=== PATIENT | male | born 1940 | race Caucasian/White ===

== ENCOUNTER 2020-07-29 11:34 | Inpatient (IN) | payer BC, MEDICARE ==
[~2020-07-29] VITALS: Ht 172.7 cm; Wt 63.0 kg
[~2020-07-29 11:34] MED LIST: ASPI-1265 PO; ATEN-169 PO; ENAL20TA75 PO; HCTZ25T PO; LEVA15HF4 IH; LEVO500T2 PO; LOSA100T13 PO; PRED20TA PO; SIMV10TA2 PO
[2020-07-29 13:19] LABS: BASOPHILS % (AUTO) 0.2 % (0-1); EOSINOPHILS % (AUTO) 0 % (0-6); HEMATOCRIT 42.1 % (42.0-52.0); HEMOGLOBIN 14.3 g/dl (14.0-17.9); LYMPHOCYTES # (AUTO) 0.2 X10'3 (1.1-4.8); LYMPHOCYTES % (AUTO) 1.1 % (21-51); MEAN CORPUSCULAR HEMOGLOBIN 30.8 PG (27.0-31.0); MEAN CORPUSCULAR HGB CONC 33.9 g/dL (33.0-36.5); MEAN CORPUSCULAR VOLUME 90.7 FL (78-98); MEAN PLATELET VOLUME 8.4 FL (7.4-10.4); MONOCYTES # (AUTO) 1.1 X10'3 (0-0.9); MONOCYTES % (AUTO) 6.2 % (2-12); NEUTROPHILS # (AUTO) 16.1 X10'3 (1.8-7.7); NEUTROPHILS % (AUTO) 92.5 % (42-75); PLATELET COUNT 196 X10'3 (140-440); RED BLOOD COUNT 4.64 X10'6 (4.70-6.10); RED CELL DISTRIBUTION WIDTH 13.2 % (11.5-14.5); WHITE BLOOD COUNT 17.4 X10'3 (4.5-11.0)
[2020-07-29 13:35] LABS: ALANINE AMINOTRANSFERASE 21 U/L (12-78); ALBUMIN 3.7 G/DL (3.4-5.0); ALBUMIN/GLOBULIN RATIO 1.1 (1.1-1.5); ALKALINE PHOSPHATASE 69 IU/L (46-116); ANION GAP 10 (8-16); ASPARTATE AMINO TRANSFERASE 18 U/L (10-37); BILIRUBIN,TOTAL 1.1 MG/DL (0.1-1.0); BLOOD UREA NITROGEN 31 MG/DL (7-18); BUN/CREATININE RATIO 21.8 (5.4-32.0); CALCIUM 8.8 MG/DL (8.5-10.1); CHLORIDE 101 MMOL/L (99-107); CREATININE 1.42 MG/DL (0.60-1.10); GLUCOSE 117 MG/DL (70-104); SODIUM 135 MMOL/L (135-145); TOTAL CARBON DIOXIDE 24.2 MMOL/L (24-32); eGFR 48 ML/MIN
[2020-07-29 13:39] LABS: ETHANOL < 0.010 GM/DL (0.0-0.010)
[2020-07-29 14:01] LABS: TOTAL CELLS COUNTED 100
[2020-07-29 14:02] LABS: PLATELET ESTIMATE NORMAL
[2020-07-29 14:59] LABS: CLARITY,URINE CLOUDY (Clear); COLOR,URINE YELLOW (Yellow); GLUCOSE, URINE NEGATIVE (Neg); KETONES,URINE NEGATIVE (Neg); LEUKOCYTE ESTERASE ,URINE LARGE (Neg); NITRITES, URINE NEGATIVE (Neg); OCCULT BLOOD,URINE LARGE (Neg); PROTEIN,URINE 30 mg/dl (Neg); UA COLLECTION TYPE CLN CATCH MIDSTREAM; UROBILINOGEN,URINE 0.2 E.U/dL (0.2-1.0)
[2020-07-29 15:05] LABS: BACTERIA,URINE 4+ /HPF (Neg); SQUAMOUS EPITHELIAL CELL,UR FEW /LPF (FEW)
[2020-07-29 15:06] LABS: WBC,URINE 50-100 /HPF (0-4)
[2020-07-29 15:08] LABS: WBC CLUMPS,URINE FEW /HPF (NEGATIVE)
--- NOTE | 2020-07-29 15:26 | NUR ---
Pt's Spouse Ida phoned and left her phone number so she can be reached [phone].
--- NOTE | 2020-07-29 15:43 | NUR ---
Pt continues to be confused, Alert to baseline, knows his name and date of but requires frequent reorientation for current situation, time, place.
[2020-07-29] MEDS ORDERED: normal saline 1000ML IV soln IVB ONE ×2 (15:45→17:15)
[2020-07-29] MEDS ORDERED: CefTRIAXone/D5W-Rocephin 1gm 50 ML IV ONE (15:45)
[2020-07-29 16:35] LABS: BASOPHILS % (AUTO) 0.1 % (0-1); EOSINOPHILS % (AUTO) 0 % (0-6); HEMATOCRIT 43.2 % (42.0-52.0); HEMOGLOBIN 14.6 g/dl (14.0-17.9); LYMPHOCYTES # (AUTO) 0.3 X10'3 (1.1-4.8); LYMPHOCYTES % (AUTO) 1.7 % (21-51); MEAN CORPUSCULAR HEMOGLOBIN 30.7 PG (27.0-31.0); MEAN CORPUSCULAR HGB CONC 33.8 g/dL (33.0-36.5); MEAN PLATELET VOLUME 8.7 FL (7.4-10.4); MONOCYTES # (AUTO) 0.7 X10'3 (0-0.9); MONOCYTES % (AUTO) 3.5 % (2-12); NEUTROPHILS # (AUTO) 17.6 X10'3 (1.8-7.7); NEUTROPHILS % (AUTO) 94.7 % (42-75); PLATELET COUNT 202 X10'3 (140-440); RED BLOOD COUNT 4.74 X10'6 (4.70-6.10); WHITE BLOOD COUNT 18.6 X10'3 (4.5-11.0)
[2020-07-29 16:46] LABS: MAGNESIUM 1.8 MG/DL (1.5-2.4)
[2020-07-29] MEDS ORDERED: ondansetron/PF 4mg/2ml inj IV PRN (17:15)
[2020-07-29] MEDS ORDERED: morphine 2 MG/ML inj. syringe IV PRN ×2 (17:15)
[2020-07-29] MEDS ORDERED: mag hydrox/Alum hydrox/simeth 30ml oral suspension PO PRN (17:15)
[2020-07-29] MEDS ORDERED: magnesium hydroxide 30ml (MOM) UD suspension PO PRN (17:15)
[2020-07-29] MEDS ORDERED: HYDROcodone/acetaminophen 5mg/325mg tablet PO PRN (17:15)
[2020-07-29] MEDS ORDERED: acetaminophen 325mg tablet PO PRN ×2 (17:15)
[2020-07-29] MEDS ORDERED: LISI-600 PO (17:50)
[2020-07-29] MEDS ORDERED: AMLO5TAB16 PO (17:50)
--- NOTE | 2020-07-29 18:15 | NUR ---
Pt was confused, discontinued IV and was found wandering in the parking lot. Pt reoriented, brought back to the room and New IV access started. Sitter with the patient.
[2020-07-29] MEDS: normal saline 1000ml 1,000 ML IV SCH (19:06)
--- NOTE | 2020-07-29 19:30 | NUR ---
PT RIPPED OUT Y PORT TO IV. NEW Y PORT REESTABLISHED AND IV PATENT. REWRAPPED WITH COBAN AND PT PLEASANT AND COOPERATIVE AT THIS TIME. SITTER AT BEDSIDE
--- NOTE | 2020-07-29 21:03 | NUR ---
received report from ER nurse Tito Rn will assume care.
[2020-07-29 21:51] VITALS: BP_SYST 133; BP_SYST 159; BP_SYST 167; BP_DIAS 70; BP_DIAS 75; BP_DIAS 78
[2020-07-29 22:00] VITALS: BP 159/78
[2020-07-30 02:00] VITALS: BP 102/58
[2020-07-30] MEDS: normal saline 1000ml 1,000 ML IV SCH ×3 (03:15→23:35)
[2020-07-30 06:00] VITALS: BP_SYST 117; BP_SYST 125; BP_SYST 131; BP_DIAS 62; BP_DIAS 66; BP_DIAS 71
--- NOTE | 2020-07-30 06:31 | NUR ---
Problems reprioritized. Patient report given, questions answered & plan of care reviewed with Rachel MALDONADO.
--- NOTE | 2020-07-30 06:40 | NUR ---
Patient in room U 3023. I have received report from CLARICE MALDONADO and had the opportunity to ask questions and assume patient care. Addendum: 07/30/20 at 0652 by Belén Reed RN Amended: Links added.
[2020-07-30 08:00] VITALS: BP_SYST 117; BP_SYST 125; BP_SYST 131; BP_DIAS 62; BP_DIAS 66; BP_DIAS 71
[2020-07-30 08:42] LABS: BASOPHILS % (AUTO) 0.3 % (0-1); EOSINOPHILS % (AUTO) 0.1 % (0-6); HEMATOCRIT 40.2 % (42.0-52.0); HEMOGLOBIN 13.7 g/dl (14.0-17.9); LYMPHOCYTES % (AUTO) 7.1 % (21-51); MEAN CORPUSCULAR HEMOGLOBIN 31.2 PG (27.0-31.0); MEAN CORPUSCULAR VOLUME 91.6 FL (78-98); MEAN PLATELET VOLUME 8.4 FL (7.4-10.4); MONOCYTES # (AUTO) 0.7 X10'3 (0-0.9); MONOCYTES % (AUTO) 5.2 % (2-12); NEUTROPHILS # (AUTO) 12.5 X10'3 (1.8-7.7); NEUTROPHILS % (AUTO) 87.3 % (42-75); PLATELET COUNT 166 X10'3 (140-440); RED BLOOD COUNT 4.38 X10'6 (4.70-6.10); RED CELL DISTRIBUTION WIDTH 13.2 % (11.5-14.5); WHITE BLOOD COUNT 14.3 X10'3 (4.5-11.0)
[2020-07-30 08:51] LABS: ALBUMIN 3.2 G/DL (3.4-5.0); ANION GAP 7 (8-16); BLOOD UREA NITROGEN 26 MG/DL (7-18); CALCIUM 8.7 MG/DL (8.5-10.1); CHLORIDE 105 MMOL/L (99-107); CREATININE 1.24 MG/DL (0.60-1.10); GLUCOSE 112 MG/DL (70-104); POTASSIUM 4.1 MMOL/L (3.5-5.1); SODIUM 139 MMOL/L (135-145); TOTAL CARBON DIOXIDE 27.2 MMOL/L (24-32); eGFR 56 ML/MIN
[2020-07-30] MEDS: CefTRIAXone/D5W-Rocephin 1gm 50 ML IV SCH (08:53)
[2020-07-30] MEDS: enoxaparin 40mg/0.4ml syringe SUBCUT SCH (08:53)
--- NOTE | 2020-07-30 09:48 | NUR ---
PAGER ID: [phone] MESSAGE: [id number] MANA HAS POSITIVE BLOOD CULTURES. MERON ROSS
[2020-07-30 11:00] VITALS: BP 150/83
--- NOTE | 2020-07-30 11:00 | NUR ---
Problems reprioritized. Patient report given, questions answered & plan of care reviewed with SUSIE MALDONADO. Addendum: 07/30/20 at 1127 by Belén Reed RN Amended: Links added.
--- NOTE | 2020-07-30 14:49 | NUR ---
Malnutrition consult. Pt admitted with reports weight loss, per physical assessment pt documented with confusion, pulling lines, has sitter at bedside and receiving caution tray. Ate about 50% of two meals. No reliable past weight history. No edema. Pt well appearing per ED note. Does not have more than two criteria for malnutrition at this time. Will follow. Addendum: 07/30/20 at [address] Amended: Links added.
[2020-07-30 15:00] VITALS: BP 148/86
--- NOTE | 2020-07-30 18:00 | NUR ---
Patient in room PCU 3023. I have received report from Yesika MALDONADO and had the opportunity to ask questions and assume patient care.
[2020-07-30 20:00] VITALS: BP 125/49
[2020-07-30] MEDS: lactobacillus rhamnosus 10,000 MMU CELLS/CAPSULE PO SCH (20:49)
--- NOTE | 2020-07-30 22:14 | NUR ---
Patient is agitated, continues to pull his IV, pees on the floor, fights with the sitter, and refuses to sit down. Dr. Hollis notified and order for Geodon and restraint in place.
[2020-07-30] MEDS ORDERED: ziprasidone IM 20mg inj **IM only IM PRN (22:15)
--- NOTE | 2020-07-30 23:17 | NUR ---
Pt. continues to be resistive to care. Geodon given as per MD's order, ineffective. New order for Ativan 1mg x 1 only.
[2020-07-30] MEDS ORDERED: LORazepam 2 mg/ml vial IV ONE (23:20)
[2020-07-31] MEDS ORDERED: ziprasidone IM 20mg inj **IM only IM ONE (01:40)
[2020-07-31 02:00] VITALS: BP 166/96
[2020-07-31 06:00] VITALS: BP 176/128
[2020-07-31 06:01] LABS: BASOPHILS % (AUTO) 0.1 % (0-1); EOSINOPHILS % (AUTO) 0 % (0-6); HEMATOCRIT 42.4 % (42.0-52.0); HEMOGLOBIN 14.6 g/dl (14.0-17.9); LYMPHOCYTES # (AUTO) 0.3 X10'3 (1.1-4.8); LYMPHOCYTES % (AUTO) 2.4 % (21-51); MEAN CORPUSCULAR HEMOGLOBIN 31.4 PG (27.0-31.0); MEAN CORPUSCULAR HGB CONC 34.4 g/dL (33.0-36.5); MEAN CORPUSCULAR VOLUME 91.4 FL (78-98); MEAN PLATELET VOLUME 8.9 FL (7.4-10.4); MONOCYTES # (AUTO) 0.4 X10'3 (0-0.9); MONOCYTES % (AUTO) 3.3 % (2-12); NEUTROPHILS # (AUTO) 11.9 X10'3 (1.8-7.7); NEUTROPHILS % (AUTO) 94.2 % (42-75); PLATELET COUNT 184 X10'3 (140-440); RED BLOOD COUNT 4.64 X10'6 (4.70-6.10); RED CELL DISTRIBUTION WIDTH 13.2 % (11.5-14.5); WHITE BLOOD COUNT 12.6 X10'3 (4.5-11.0)
[2020-07-31 06:14] LABS: ALBUMIN 3.2 G/DL (3.4-5.0); ANION GAP 10 (8-16); BLOOD UREA NITROGEN 34 MG/DL (7-18); BUN/CREATININE RATIO 18.5 (5.4-32.0); CALCIUM 8.8 MG/DL (8.5-10.1); CHLORIDE 102 MMOL/L (99-107); CREATININE 1.84 MG/DL (0.60-1.10); GLUCOSE 155 MG/DL (70-104); POTASSIUM 3.5 MMOL/L (3.5-5.1); SODIUM 137 MMOL/L (135-145); TOTAL CARBON DIOXIDE 24.8 MMOL/L (24-32); eGFR 35 ML/MIN
--- NOTE | 2020-07-31 06:31 | NUR ---
Problems reprioritized. Patient report given, questions answered & plan of care reviewed with Sulema MALDONADO.
--- NOTE | 2020-07-31 06:39 | NUR ---
Patient in room PCU 3023. I have received report from ERICA Lay and had the opportunity to ask questions and assume patient care.
[2020-07-31] MEDS: CefTRIAXone/D5W-Rocephin 1gm 50 ML IV SCH (07:58)
[2020-07-31] MEDS: enoxaparin 40mg/0.4ml syringe SUBCUT SCH (07:58)
[2020-07-31] MEDS: lactobacillus rhamnosus 10,000 MMU CELLS/CAPSULE PO SCH ×2 (08:00→19:45)
[2020-07-31] MEDS: normal saline 1000ml 1,000 ML IV SCH ×2 (10:32→19:48)
--- NOTE | 2020-07-31 11:27 | NUR ---
pT WITH BILE EMESIS FOUND UNDER DRAW SHEET AND PT ACTIVELY VOMITING SMALL AMOUNTS OF SAME. pT INC OF URINE, PT BATHED, PROVIDED ORAL CARE AND APPLIED A CONDOM CATH. Addendum: 07/31/20 at 1128 by Sulema Cyr RN Amended: Links added.
--- NOTE | 2020-07-31 11:38 | NUR ---
Unable to do orthostatic due to acute confusion and restraints Addendum: 07/31/20 at 1144 by Sulema Cyr RN Amended: Links added.
[2020-07-31] MEDS ORDERED: ondansetron 4mg rapidly disintigrating tab PO PRN (15:25)
[2020-07-31 18:00] VITALS: BP 176/98
--- NOTE | 2020-07-31 18:34 | NUR ---
Problems reprioritized. Patient report given, questions answered & plan of care reviewed with Ayesha Contreras RN.
[2020-07-31 20:00] VITALS: BP_SYST 108; BP_SYST 200; BP_SYST 230; BP_DIAS 105; BP_DIAS 121; BP_DIAS 74
[2020-07-31 22:00] VITALS: BP 200/105
[2020-07-31] MEDS: hyDRALAzine 10mg tablet PO PRN ×2 (22:21→22:26)
--- NOTE | 2020-07-31 22:23 | NUR ---
Called MD, as patient had increase BP. New order for hydralazine Q 6 hours, PRN
[2020-08-01] VITALS: BP 179/88
[2020-08-01 02:04] VITALS: BP 166/112
[2020-08-01] MEDS: normal saline 1000ml 1,000 ML IV SCH (05:32)
--- NOTE | 2020-08-01 06:19 | NUR ---
Patient in room PCU 3023. I have received report from ERICA Hodge and had the opportunity to ask questions and assume patient care.
--- NOTE | 2020-08-01 06:23 | NUR ---
Problems reprioritized. Patient report given, questions answered & plan of care reviewed with ERICA Montalvo.
[2020-08-01 06:32] LABS: ANION GAP 11 (8-16); BASOPHILS % (AUTO) 0.1 % (0-1); BLOOD UREA NITROGEN 38 MG/DL (7-18); BUN/CREATININE RATIO 22.8 (5.4-32.0); CALCIUM 8.4 MG/DL (8.5-10.1); CHLORIDE 104 MMOL/L (99-107); CREATININE 1.67 MG/DL (0.60-1.10); EOSINOPHILS % (AUTO) 0.1 % (0-6); GLUCOSE 121 MG/DL (70-104); HEMATOCRIT 41.7 % (42.0-52.0); HEMOGLOBIN 14.5 g/dl (14.0-17.9); LYMPHOCYTES # (AUTO) 0.6 X10'3 (1.1-4.8); MEAN CORPUSCULAR HEMOGLOBIN 31.6 PG (27.0-31.0); MEAN CORPUSCULAR HGB CONC 34.8 g/dL (33.0-36.5); MEAN CORPUSCULAR VOLUME 90.8 FL (78-98); MEAN PLATELET VOLUME 9.1 FL (7.4-10.4); MONOCYTES # (AUTO) 0.8 X10'3 (0-0.9); MONOCYTES % (AUTO) 7.3 % (2-12); NEUTROPHILS # (AUTO) 9.7 X10'3 (1.8-7.7); NEUTROPHILS % (AUTO) 87.5 % (42-75); PLATELET COUNT 188 X10'3 (140-440); POTASSIUM 3.5 MMOL/L (3.5-5.1); RED BLOOD COUNT 4.59 X10'6 (4.70-6.10); RED CELL DISTRIBUTION WIDTH 13.1 % (11.5-14.5); SODIUM 138 MMOL/L (135-145); TOTAL CARBON DIOXIDE 22.7 MMOL/L (24-32); WHITE BLOOD COUNT 11.1 X10'3 (4.5-11.0); eGFR 40 ML/MIN
[2020-08-01 06:35] VITALS: BP 157/87
[2020-08-01] MEDS: lactobacillus rhamnosus 10,000 MMU CELLS/CAPSULE PO SCH (07:13)
[2020-08-01] MEDS: CefTRIAXone/D5W-Rocephin 1gm 50 ML IV SCH (07:15)
[2020-08-01] MEDS: enoxaparin 40mg/0.4ml syringe SUBCUT SCH (07:15)
[2020-08-01 08:00] VITALS: BP_SYST 124; BP_SYST 133; BP_SYST 136; BP_DIAS 67; BP_DIAS 68; BP_DIAS 72
[2020-08-01 11:00] VITALS: BP 144/93
--- NOTE | 2020-08-01 12:00 | NUR ---
Student documentation: I have reviewed and agree with all interventions, assessments performed and documented by Jesi, Student nurse.
[2020-08-01] MEDS ORDERED: LEVO500T89 PO (12:34)
--- NOTE | 2020-08-01 15:00 | NUR ---
Patient stable for discharge per md orders. IV discontinued with cannula intact. Discharge instructions and strict return precautions gone over in detail with patient's significant other, Ida. Patient prescriptions sent to [facility] in [employer] on [address]. patient wheeled to parking lot in front of hospital accompanied by RN. Armbands cut at time of discharge. Patient's was awaiting in private vehicle; vehicle seen leaving premise.
== END 2020-08-01 15:00 | disposition home health service (06) | DRG 871 ==
LOC: ER 11:34 → ED HOLD 17:14 → PCU 3S 21:15
PROVIDERS: ADMIT Internal Medicine; ATTEND Family Medicine
DX: A41.51 Sepsis due to Escherichia coli [E. coli] (principal); G92 Toxic encephalopathy; N39.0 Urinary tract infection, site not specified; N17.9 Acute kidney failure, unspecified; F03.90 Unspecified dementia, unspecified severity, without behavioral disturbance, psychotic disturbance, mood disturbance, and anxiety; E78.5 Hyperlipidemia, unspecified; E78.00 Pure hypercholesterolemia, unspecified; Z87.891 Personal history of nicotine dependence; J45.909 Unspecified asthma, uncomplicated; I10 Essential (primary) hypertension
CPT/HCPCS: 36415; 71045; 80048; 80053; 80320; 81001; 83605; 83735; 83880; 84145; 84443; 85007; 85025; 87040; 87077; 87081; 87088; 87186; 93005; 97116; 97161; 97530; 97535; 99285; G0378; J0696; J1650; J2060; J2270; J3486; J7030

== ENCOUNTER 2020-08-02 06:26 | Emergency (ER) | payer MEDICARE ==
[~2020-08-02] VITALS: Ht 172.7 cm; Wt 65.0 kg
[~2020-08-02 06:26] MED LIST changes: +AMLO5TAB16 PO; +LEVO500T89 PO; +LISI-600 PO
--- NOTE | 2020-08-02 07:48 | NUR ---
TC TO TO INFORM OF PATIENT DISCHARGE STATUS. IS CONCERNED THAT NOTHING NEW WAS DETECTED ON EXAMINATION, BASED ON PATIENT RESTLESSNESS ALL NIGHT AND PAIN. INFORMED THAT PATIENT SHOULD CONTINUE MEDS PRESCRIBED AND WILL BE COMING TO [facility] PATIENT.
[2020-08-02 09:10] VITALS: BP 187/104
== END 2020-08-02 09:29 | disposition home or self-care (01) ==
LOC: ER 06:26
DX: M25.551 Pain in right hip (principal); N39.0 Urinary tract infection, site not specified; F03.90 Unspecified dementia, unspecified severity, without behavioral disturbance, psychotic disturbance, mood disturbance, and anxiety; E78.00 Pure hypercholesterolemia, unspecified; I10 Essential (primary) hypertension; J45.909 Unspecified asthma, uncomplicated; Z85.9 Personal history of malignant neoplasm, unspecified; Z88.1 Allergy status to other antibiotic agents; Z88.8 Allergy status to other drugs, medicaments and biological substances
CPT/HCPCS: 72170; 99284

== ENCOUNTER 2020-08-08 07:36 | Inpatient (IN) | payer MEDICARE ==
[~2020-08-08] VITALS: Ht 188 cm; Wt 62.0 kg
[~2020-08-08 07:36] MED LIST changes: -ASPI-1265 PO; -ATEN-169 PO; -ENAL20TA75 PO; -HCTZ25T PO; -LEVA15HF4 IH; -LEVO500T2 PO; -LOSA100T13 PO; -PRED20TA PO; -SIMV10TA2 PO
[2020-08-08] MEDS ORDERED: TRANEXAMIC ACID 1 GM IN NACL,ISO-OS 100 ML IV ONE (08:55)
--- NOTE | 2020-08-08 09:05 | NUR ---
CALLED IN FOR CONDITION REPORT. INFORMED THAT WORK-UP IS STILL IN PROGRESS. SHE WILL CALL BACK IN 2 HOURS FOR ADDITIONAL INFORMATION.
[2020-08-08 09:08] LABS: CLARITY,URINE CLEAR (Clear); COLOR,URINE YELLOW (Yellow); GLUCOSE, URINE NEGATIVE (Neg); KETONES,URINE NEGATIVE (Neg); LEUKOCYTE ESTERASE ,URINE NEGATIVE (Neg); NITRITES, URINE NEGATIVE (Neg); OCCULT BLOOD,URINE TRACE-INTACT (Neg); PROTEIN,URINE NEGATIVE (Neg); UROBILINOGEN,URINE 0.2 E.U/dL (0.2-1.0)
--- NOTE | 2020-08-08 09:13 | NUR ---
dr zepeda informed bladder scan post void is over 960 ml, vo for queen cath
[2020-08-08] MEDS ORDERED: LIDOcaine 2% 10ml TOPICAL JELLY (Urojet) TP ONE (09:15)
[2020-08-08 09:16] LABS: UA COLLECTION TYPE CLN CATCH MIDSTREAM
[2020-08-08 09:17] LABS: SQUAMOUS EPITHELIAL CELL,UR FEW /LPF (FEW)
[2020-08-08 09:18] LABS: BACTERIA,URINE FEW /HPF (Neg); TRANSITIONAL EPI CELLS,URINE FEW /HPF
[2020-08-08 09:19] LABS: MUCUS STRANDS FEW /LPF (Neg)
[2020-08-08] MEDS ORDERED: magnesium citrate 296ml oral solution PO ONE (10:00)
[2020-08-08 10:02] LABS: BASOPHILS % (AUTO) 0.6 % (0-1); EOSINOPHILS # (AUTO) 0.1 X10'3 (0-0.9); EOSINOPHILS % (AUTO) 0.9 % (0-6); HEMATOCRIT 36.5 % (42.0-52.0); HEMOGLOBIN 12.7 g/dl (14.0-17.9); LYMPHOCYTES # (AUTO) 0.8 X10'3 (1.1-4.8); LYMPHOCYTES % (AUTO) 12.1 % (21-51); MEAN CORPUSCULAR HEMOGLOBIN 31.2 PG (27.0-31.0); MEAN CORPUSCULAR HGB CONC 34.9 g/dL (33.0-36.5); MEAN CORPUSCULAR VOLUME 89.6 FL (78-98); MONOCYTES # (AUTO) 0.5 X10'3 (0-0.9); MONOCYTES % (AUTO) 8.1 % (2-12); NEUTROPHILS # (AUTO) 5.1 X10'3 (1.8-7.7); NEUTROPHILS % (AUTO) 78.3 % (42-75); PLATELET COUNT 253 X10'3 (140-440); RED BLOOD COUNT 4.07 X10'6 (4.70-6.10); RED CELL DISTRIBUTION WIDTH 13.4 % (11.5-14.5); WHITE BLOOD COUNT 6.6 X10'3 (4.5-11.0)
[2020-08-08 10:20] LABS: ALANINE AMINOTRANSFERASE 41 U/L (12-78); ALBUMIN/GLOBULIN RATIO 0.8 (1.1-1.5); ALKALINE PHOSPHATASE 76 IU/L (46-116); ANION GAP 14 (8-16); ASPARTATE AMINO TRANSFERASE 32 U/L (10-37); BILIRUBIN,TOTAL 0.7 MG/DL (0.1-1.0); BLOOD UREA NITROGEN 45 MG/DL (7-18); BUN/CREATININE RATIO 14.9 (5.4-32.0); CALCIUM 8.7 MG/DL (8.5-10.1); CHLORIDE 102 MMOL/L (99-107); CREATININE 3.03 MG/DL (0.60-1.10); GLUCOSE 96 MG/DL (70-104); POTASSIUM 3.8 MMOL/L (3.5-5.1); SODIUM 138 MMOL/L (135-145); TOTAL CARBON DIOXIDE 22.5 MMOL/L (24-32); TOTAL PROTEIN 6.6 G/DL (6.4-8.2); eGFR 20 ML/MIN
--- NOTE | 2020-08-08 11:09 | NUR ---
SPOKE WITH JASON [phone]
--- NOTE | 2020-08-08 11:24 | NUR ---
SPOKE TO AGAIN
[2020-08-08] MEDS ORDERED: normal saline 1000ml 1,000 ML IV SCH (11:25)
[2020-08-08] MEDS ORDERED: ondansetron/PF 4mg/2ml inj IV PRN (11:25)
[2020-08-08] MEDS ORDERED: magnesium 4gm in 100ml NS 100 ML IV PRN (11:25)
[2020-08-08] MEDS ORDERED: magnesium Cl slow-release 64mg tablet PO PRN (11:25)
[2020-08-08] MEDS ORDERED: potassium CL 10mEq/100ml bag 100 ML IV PRN ×2 (11:25)
[2020-08-08] MEDS ORDERED: magnesium 2GM in 50ml NS 50 ML IV PRN (11:25)
[2020-08-08] MEDS ORDERED: acetaminophen 325mg tablet PO PRN (11:25)
[2020-08-08] MEDS ORDERED: potassium Cl 20 mEq SR tablet PO PRN ×2 (11:25)
[2020-08-08] MEDS ORDERED: FLO0.4C PO (11:34)
[2020-08-08] MEDS ORDERED: LEVO500T89 PO (11:34)
[2020-08-08] MEDS ORDERED: QUET25TA34 PO (11:34)
--- NOTE | 2020-08-08 11:50 | NUR ---
CALLED IN FOR CONDITION REPORT AND WAS INFORMED THAT PATIENT WILL PROBABLY BE ADMITTED INPATIENT.
--- NOTE | 2020-08-08 12:24 | NUR ---
Patient in room ED 15. I have received report from Hannah and had the opportunity to ask questions and assume patient care.
--- NOTE | 2020-08-08 12:27 | NUR ---
PHONE REPORT TO CARLOS MALDONADO IN ORTHO PATIENT TO GO TO ROOM 4010B ON MONITOR WITH RN
--- NOTE | 2020-08-08 12:37 | NUR ---
CARLOS ARWARE THAT SUGAR AND SODA ENEMA NOT GIVEN, ONLY MINERAL OIL ENEMA
--- NOTE | 2020-08-08 12:42 | NUR ---
spoke to , questions answered in simple terms. provided room # and update
--- NOTE | 2020-08-08 13:23 | NUR ---
Pt arrived on the floor, skin check, tucked in
[2020-08-08 13:46] VITALS: BP 185/89
[2020-08-08 17:00] VITALS: BP 183/95
--- NOTE | 2020-08-08 17:10 | NUR ---
PAGER ID: [phone] MESSAGE: Araceli bryson on neuro, Mr. Worley in 2318B has BP of 183/95, please advise
[2020-08-08] MEDS ORDERED: amLODIPine 5mg tablet PO ONE ×2 (17:15→19:00)
--- NOTE | 2020-08-08 18:22 | NUR ---
Problems reprioritized. Patient report given, questions answered & plan of care reviewed with Lazara.
--- NOTE | 2020-08-08 18:30 | NUR ---
Patient in room ORTHO 4010. I have received report from Araceli MALDONADO and had the opportunity to ask questions and assume patient care. Bed alarm and tab alarm on.
--- NOTE | 2020-08-08 19:03 | NUR ---
called and stated, "I can't take him back home so I need to talk to some case checker about him." Social instrument and control service person and discharge planning ordered.
--- NOTE | 2020-08-08 19:14 | NUR ---
paged Dr. De La Torre to re-order home meds. 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 please reorder home meds - FLOMAX and BP, and Seroquel. pt has severe dementia
[2020-08-08 19:21] VITALS: BP 133/66
[2020-08-08] MEDS: K and/or MAG REPLACEMENT MC SCH (20:00)
[2020-08-08] MEDS: tamsulosin 0.4mg capsule PO SCH (20:42)
[2020-08-08] MEDS: QUEtiapine 25mg tablet PO SCH (20:43)
[2020-08-08] MEDS: lisinopril 20mg tablet PO SCH (20:48)
[2020-08-08 22:00] VITALS: BP 159/75
--- NOTE | 2020-08-09 06:27 | NUR ---
Problems reprioritized. Patient report given, questions answered & plan of care reviewed with Gi MALDONADO.
[2020-08-09 06:30] LABS: BASOPHILS % (AUTO) 0.8 % (0-1); EOSINOPHILS # (AUTO) 0.1 X10'3 (0-0.9); EOSINOPHILS % (AUTO) 2.3 % (0-6); HEMATOCRIT 38.1 % (42.0-52.0); HEMOGLOBIN 12.9 g/dl (14.0-17.9); LYMPHOCYTES % (AUTO) 17.4 % (21-51); MEAN CORPUSCULAR HEMOGLOBIN 30.6 PG (27.0-31.0); MEAN CORPUSCULAR HGB CONC 33.8 g/dL (33.0-36.5); MEAN CORPUSCULAR VOLUME 90.8 FL (78-98); MONOCYTES # (AUTO) 0.5 X10'3 (0-0.9); MONOCYTES % (AUTO) 8.3 % (2-12); NEUTROPHILS # (AUTO) 4.1 X10'3 (1.8-7.7); NEUTROPHILS % (AUTO) 71.2 % (42-75); PLATELET COUNT 273 X10'3 (140-440); RED CELL DISTRIBUTION WIDTH 13.4 % (11.5-14.5); WHITE BLOOD COUNT 5.8 X10'3 (4.5-11.0)
[2020-08-09 06:45] LABS: ALBUMIN 2.9 G/DL (3.4-5.0); ANION GAP 6 (8-16); BLOOD UREA NITROGEN 33 MG/DL (7-18); BUN/CREATININE RATIO 19.1 (5.4-32.0); CALCIUM 9.1 MG/DL (8.5-10.1); CHLORIDE 108 MMOL/L (99-107); CHOL/HDL RATIO 3.8 (0.00-4.99); CHOLESTEROL 145 MG/DL (0-200); CREATININE 1.73 MG/DL (0.60-1.10); GLUCOSE 96 MG/DL (70-104); HDL CHOLESTEROL 38 MG/DL (35-60); LDL CHOLESTEROL 101 MG/DL (50-100); MAGNESIUM 2.4 MG/DL (1.5-2.4); POTASSIUM 4.2 MMOL/L (3.5-5.1); SODIUM 144 MMOL/L (135-145); TOTAL CARBON DIOXIDE 29.7 MMOL/L (24-32); TRIGLYCERIDES 67 MG/DL (20-135); eGFR 38 ML/MIN
[2020-08-09 07:13] VITALS: BP 154/75
[2020-08-09] MEDS: lisinopril 20mg tablet PO SCH (07:54)
[2020-08-09] MEDS: amLODIPine 5mg tablet PO SCH (07:55)
[2020-08-09] MEDS: K and/or MAG REPLACEMENT MC SCH ×2 (08:00→20:00)
[2020-08-09 10:00] VITALS: BP 132/74
--- NOTE | 2020-08-09 12:20 | NUR ---
Low BMI trigger: BMI 17.5. Noted pt ht recent prior admits 68in; current 74in likely error. No scaled wt this admit as well though earlier admit this month BMI 21 via bed scale. ALBINA d/w RN regarding ht error and updated scaled wt this admit. To f/u 08/13 for initial assessment. Addendum: 08/09/20 at [address] Amended: Links added.
[2020-08-09 18:00] VITALS: BP 161/73
[2020-08-09] MEDS: QUEtiapine 25mg tablet PO SCH (19:53)
[2020-08-09] MEDS: tamsulosin 0.4mg capsule PO SCH (19:54)
[2020-08-09 22:00] VITALS: BP 106/70
[2020-08-10 06:51] LABS: BASOPHILS # (AUTO) 0.1 X10'3 (0-0.2); BASOPHILS % (AUTO) 0.8 % (0-1); EOSINOPHILS # (AUTO) 0.3 X10'3 (0-0.9); HEMATOCRIT 36.1 % (42.0-52.0); HEMOGLOBIN 12.3 g/dl (14.0-17.9); LYMPHOCYTES # (AUTO) 1.2 X10'3 (1.1-4.8); LYMPHOCYTES % (AUTO) 18.6 % (21-51); MEAN CORPUSCULAR HEMOGLOBIN 30.6 PG (27.0-31.0); MEAN CORPUSCULAR HGB CONC 34.1 g/dL (33.0-36.5); MEAN CORPUSCULAR VOLUME 89.6 FL (78-98); MEAN PLATELET VOLUME 7.8 FL (7.4-10.4); MONOCYTES # (AUTO) 0.6 X10'3 (0-0.9); MONOCYTES % (AUTO) 8.6 % (2-12); NEUTROPHILS # (AUTO) 4.4 X10'3 (1.8-7.7); PLATELET COUNT 272 X10'3 (140-440); RED BLOOD COUNT 4.04 X10'6 (4.70-6.10); RED CELL DISTRIBUTION WIDTH 13.2 % (11.5-14.5); WHITE BLOOD COUNT 6.5 X10'3 (4.5-11.0)
[2020-08-10 07:03] LABS: ALBUMIN 2.7 G/DL (3.4-5.0); ANION GAP 4 (8-16); BLOOD UREA NITROGEN 34 MG/DL (7-18); BUN/CREATININE RATIO 24.1 (5.4-32.0); CALCIUM 9.1 MG/DL (8.5-10.1); CHLORIDE 103 MMOL/L (99-107); CREATININE 1.41 MG/DL (0.60-1.10); GLUCOSE 109 MG/DL (70-104); MAGNESIUM 2.3 MG/DL (1.5-2.4); POTASSIUM 4.1 MMOL/L (3.5-5.1); SODIUM 136 MMOL/L (135-145); TOTAL CARBON DIOXIDE 28.8 MMOL/L (24-32); eGFR 48 ML/MIN
[2020-08-10] MEDS: amLODIPine 5mg tablet PO SCH (07:51)
[2020-08-10] MEDS: lisinopril 20mg tablet PO SCH (07:52)
[2020-08-10 07:56] VITALS: BP 139/68
--- NOTE | 2020-08-10 11:34 | NUR ---
Patient was discharged iv and tele was removed from patient. Patient was alert and oriented at time of discharge. Patients came to pick patient up. I informed the on how to empty the Hines leg bag.
== END 2020-08-10 11:38 | disposition home health service (06) | DRG 726 ==
LOC: ER 07:37 → ED HOLD 11:21 → EDBEDREQ 12:09 → ORTHO 4S 13:30
PROVIDERS: ADMIT Internal Medicine; ATTEND Internal Medicine
PROC: 0T9B70Z Drainage of Bladder with Drainage Device, Via Natural or Artificial Opening (ICD-10-PCS; principal; 2020-08-08)
DX: N40.1 Benign prostatic hyperplasia with lower urinary tract symptoms (principal); N13.8 Other obstructive and reflux uropathy; N17.9 Acute kidney failure, unspecified; E78.00 Pure hypercholesterolemia, unspecified; E86.0 Dehydration; F03.90 Unspecified dementia, unspecified severity, without behavioral disturbance, psychotic disturbance, mood disturbance, and anxiety; I12.9 Hypertensive chronic kidney disease with stage 1 through stage 4 chronic kidney disease, or unspecified chronic kidney disease; J45.909 Unspecified asthma, uncomplicated; K56.41 Fecal impaction; N18.9 Chronic kidney disease, unspecified; Z79.899 Other long term (current) drug therapy
CPT/HCPCS: 36415; 71045; 72192; 76775; 80048; 80053; 80061; 81001; 83735; 85025; 87081; 87088; 93005; 97116; 97161; 97530; 99285; G0378; J7030

== ENCOUNTER 2020-08-18 05:35 | Emergency (ER) | payer MEDICARE ==
[~2020-08-18] VITALS: Ht 182.9 cm; Wt 68.2 kg
[~2020-08-18 05:35] MED LIST changes: +FLO0.4C PO; -LEVO500T89 PO; +QUET25TA34 PO
[2020-08-18] MEDS ORDERED: LIDOcaine 2% 10ml TOPICAL JELLY (Urojet) TP ONE (05:40)
[2020-08-18 06:43] VITALS: BP 155/77
== END 2020-08-18 06:48 | disposition home or self-care (01) ==
LOC: ER 05:36
DX: T83.098A Other mechanical complication of other urinary catheter, initial encounter (principal); F03.90 Unspecified dementia, unspecified severity, without behavioral disturbance, psychotic disturbance, mood disturbance, and anxiety; E78.00 Pure hypercholesterolemia, unspecified; I10 Essential (primary) hypertension; J45.909 Unspecified asthma, uncomplicated; Z87.891 Personal history of nicotine dependence; Z79.899 Other long term (current) drug therapy; Z85.9 Personal history of malignant neoplasm, unspecified; Y84.6 Urinary catheterization as the cause of abnormal reaction of the patient, or of later complication, without mention of misadventure at the time of the procedure; Y92.89 Other specified places as the place of occurrence of the external cause
CPT/HCPCS: 51702; 99284

== ENCOUNTER 2020-09-16 14:59 | Emergency (ER) | payer MEDICARE ==
[~2020-09-16] VITALS: Ht 175.3 cm; Wt 61.1 kg
[2020-09-16] MEDS ORDERED: ketorolac trometh. 30mg/ml inj. IM ONE (15:35)
[2020-09-16] MEDS ORDERED: cyclobenzaprine 10mg tablet PO ONE (15:35)
[2020-09-16] MEDS ORDERED: CYCL-394 PO (15:36)
[2020-09-16 16:09] VITALS: BP 159/82
== END 2020-09-16 15:59 | disposition home or self-care (01) ==
LOC: EDBD → ER 15:00
DX: M54.2 Cervicalgia (principal); E78.00 Pure hypercholesterolemia, unspecified; I10 Essential (primary) hypertension; J45.909 Unspecified asthma, uncomplicated; Z98.890 Other specified postprocedural states; Z79.899 Other long term (current) drug therapy
CPT/HCPCS: 96372; 99283; J1885

== ENCOUNTER 2020-09-18 02:26 | Emergency (ER) | payer MEDICARE ==
[~2020-09-18] VITALS: Ht 177.8 cm; Wt 72.7 kg
[~2020-09-18 02:26] MED LIST changes: +CYCL-394 PO
[2020-09-18] MEDS ORDERED: LIDOcaine 2% 10ml TOPICAL JELLY (Urojet) TP ONE (02:40)
[2020-09-18 02:56] LABS: BASOPHILS % (AUTO) 0.3 % (0-1); EOSINOPHILS # (AUTO) 0.1 X10'3 (0-0.9); EOSINOPHILS % (AUTO) 0.5 % (0-6); HEMATOCRIT 36.4 % (42.0-52.0); HEMOGLOBIN 12.2 g/dl (14.0-17.9); LYMPHOCYTES % (AUTO) 8.5 % (21-51); MEAN CORPUSCULAR HEMOGLOBIN 29.8 PG (27.0-31.0); MEAN CORPUSCULAR HGB CONC 33.4 g/dL (33.0-36.5); MEAN CORPUSCULAR VOLUME 89.1 FL (78-98); MEAN PLATELET VOLUME 8.3 FL (7.4-10.4); MONOCYTES # (AUTO) 1.1 X10'3 (0-0.9); MONOCYTES % (AUTO) 9.4 % (2-12); NEUTROPHILS # (AUTO) 9.7 X10'3 (1.8-7.7); NEUTROPHILS % (AUTO) 81.3 % (42-75); PLATELET COUNT 255 X10'3 (140-440); RED BLOOD COUNT 4.08 X10'6 (4.70-6.10); RED CELL DISTRIBUTION WIDTH 13.4 % (11.5-14.5); WHITE BLOOD COUNT 11.9 X10'3 (4.5-11.0)
[2020-09-18 03:06] LABS: ANION GAP 9 (8-16); BILIRUBIN,TOTAL 0.6 MG/DL (0.1-1.0); BLOOD UREA NITROGEN 38 MG/DL (7-18); BUN/CREATININE RATIO 28.8 (5.4-32.0); CALCIUM 8.9 MG/DL (8.5-10.1); CHLORIDE 100 MMOL/L (99-107); CREATININE 1.32 MG/DL (0.60-1.10); GLUCOSE 139 MG/DL (70-104); POTASSIUM 4.1 MMOL/L (3.5-5.1); SODIUM 134 MMOL/L (135-145); TOTAL CARBON DIOXIDE 24.7 MMOL/L (24-32); TOTAL PROTEIN 6.7 G/DL (6.4-8.2); eGFR 52 ML/MIN
[2020-09-18 03:07] LABS: ALANINE AMINOTRANSFERASE 19 U/L (12-78); ALBUMIN 2.7 G/DL (3.4-5.0); ALBUMIN/GLOBULIN RATIO 0.7 (1.1-1.5); ALKALINE PHOSPHATASE 73 IU/L (46-116); ASPARTATE AMINO TRANSFERASE 13 U/L (10-37)
[2020-09-18 03:25] LABS: CLARITY,URINE SLIGHTLY CLOUDY (Clear); COLOR,URINE YELLOW (Yellow); GLUCOSE, URINE NEGATIVE (Neg); KETONES,URINE NEGATIVE (Neg); LEUKOCYTE ESTERASE ,URINE MODERATE (Neg); NITRITES, URINE NEGATIVE (Neg); OCCULT BLOOD,URINE TRACE-INTACT (Neg); PH,URINE 5.5 (4.8-8.0); PROTEIN,URINE NEGATIVE (Neg); UROBILINOGEN,URINE 0.2 E.U/dL (0.2-1.0)
[2020-09-18 03:28] LABS: UA COLLECTION TYPE VOIDED
[2020-09-18 03:30] LABS: BACTERIA,URINE 2+ /HPF (Neg); SQUAMOUS EPITHELIAL CELL,UR FEW /LPF (FEW); WBC,URINE TNTC /HPF (0-4)
[2020-09-18] MEDS ORDERED: CefTRIAXone/D5W-Rocephin 1gm 50 ML IV ONE (03:35)
[2020-09-18 03:49] VITALS: BP 160/82
[2020-09-18] MEDS ORDERED: DOXY-224 PO (03:49)
[2020-09-18] MEDS ORDERED: CEPH-572 PO (03:55)
--- NOTE | 2020-09-18 04:21 | NUR ---
Spouse informed of pt status. Discharge instructions provided over the phone, with SO demonstrating understanding. Per , she'll be able to garbage pick up worker pt. at daylight (around 0800). She states that she struggles driving at noc time.
--- NOTE | 2020-09-18 06:43 | NUR ---
pt alert no distress noted. awaiting for to pickup once the sun comes up.
--- NOTE | 2020-09-18 07:07 | NUR ---
pt observed standing at doorway of room. educated on waiting to drive once the sun comes up. pt redirected back to bed. no distress noted.
== END 2020-09-18 08:10 | disposition home or self-care (01) ==
LOC: EDBD 02:31 → ER 02:31
DX: N39.0 Urinary tract infection, site not specified (principal); R33.9 Retention of urine, unspecified; R10.84 Generalized abdominal pain; M79.604 Pain in right leg; E78.00 Pure hypercholesterolemia, unspecified; I10 Essential (primary) hypertension; J45.909 Unspecified asthma, uncomplicated; Z87.440 Personal history of urinary (tract) infections; Z85.9 Personal history of malignant neoplasm, unspecified; Z98.890 Other specified postprocedural states; Z79.899 Other long term (current) drug therapy
CPT/HCPCS: 36415; 51702; 80053; 81001; 85025; 87088; 96365; 99284; J0696